=== PATIENT | female | born 1940 | race Caucasian/White ===

== ENCOUNTER 2016-08-19 15:47 | Inpatient (IN) | payer MEDICARE ==
[~2016-08-19] VITALS: Ht 149.9 cm; Wt 33.9 kg
[2016-08-19] MEDS ORDERED: ALBU0.63 (16:18)
[2016-08-19] MEDS ORDERED: PRED5TA (16:18)
[2016-08-19] MEDS ORDERED: IPRATROPIUM/ (16:18)
[2016-08-19] MEDS ORDERED: PARO20TA2 (16:18)
[2016-08-19] MEDS ORDERED: PANT40TA2 (16:18)
[2016-08-19] MEDS ORDERED: OXYCODONE-ACETAMINOPHEN (16:27)
[2016-08-19] MEDS ORDERED: IBUP80TA (16:27)
[2016-08-19] MEDS ORDERED: methylPREDNISolone INJ 125 MG/2 ML VIAL (J2930) IV ONE (16:30)
[2016-08-19] MEDS: IPRATROPIUM 0.5MG/ALBUTEROL 2.5MG INH SOL UD 3ML (DUONEB)(J7620) NEB SCH ×3 (16:43→17:10)
[2016-08-19 16:58] LABS: BASO % 0.3 % (0.0-1.0); EOS # 0.1 K/mm3 (0.0-0.50); EOS % 0.4 % (0.0-3.0); LARGE UNSTAINED CELL # 0.1 K/mm3 (0.0-0.4); LARGE UNSTAINED CELL % 0.7 % (0.0-4.0); LYMPH # 0.9 K/mm3 (1.5-4.5); LYMPH % 5.1 % (24.0-44.0); MEAN CORPUSCULAR HEMOGLOBIN 30.5 pg (27.0-33.0); MEAN CORPUSCULAR VOLUME 89.7 fl (80.0-96.0); MONO # 0.8 K/mm3 (0.0-0.8); MONO % 5.3 % (0.0-5.0); NEUTROPHILS # 13.3 K/mm3 (1.8-7.7); NEUTROPHILS % 88.1 % (36.0-66.0); PLATELET COUNT, AUTOMATED 377 k/mm3 (150-450); RED CELL DISTRIBUTION WIDTH 13.5 % (11.5-14.5); WHITE BLOOD COUNT 15.1 K/mm3 (4.0-10.0)
[2016-08-19 17:25] LABS: ANION GAP 9 MEQ/L (8-16); BLOOD UREA NITROGEN 30 MG/DL (7-18); CARBON DIOXIDE LEVEL 30 MEQ/L (21-32); CHLORIDE LEVEL 97 MEQ/L (98-107); CREATININE FOR GFR 0.53 MG/DL (0.55-1.02); GLOMERULAR FILTRATION RATE > 60.0 (>39); GLUCOSE, FASTING 100 MG/DL (83-110); POTASSIUM SERUM 3.7 MEQ/L (3.5-5.1); SODIUM LEVEL 136 MEQ/L (136-145)
[2016-08-19] MEDS ORDERED: AZITHROMYCIN INJ 500 MG, VIAL MATE ADAPTER 1 EACH in D5W 250 ML IV ONE (20:15)
[2016-08-19] MEDS ORDERED: cefTRIAXone SOD 1 GM in D5W MINI-BAG PLUS 50 ML IV ONE (20:15)
--- NOTE | 2016-08-19 20:22 | ECGEPIP ---
Stationary ECG Study [facility] - ED Test Date: 2016-08-19 Pat Name: JESSICA LONG Department: Room: - Gender: F [employer] Ext[employer]: abraham : 1940 Requested By: BYRON West Order Number: [id number] Reading MD: Marsha Leary Measurements Intervals [place] Rate: 107 P: 71 SD: 117 QRS: 60 QRSD: 70 T: 58 QT: 305 QTc: 408 Interpretive Statements SINUS TACHYCARDIA WITH SHORT SD INTERVAL ABNORMAL RHYTHM ECG BASELINE ARTIFACT LIMITS INTERPRETATION NO PRIOR FOR COMPARISON Electronically Signed On 08-19-2016 20:22:27 EST by Marsha Leary
[2016-08-19] MEDS ORDERED: PRED10TA PO (20:48)
[2016-08-19] MEDS ORDERED: PARO-39 PO (20:48)
[2016-08-19] MEDS ORDERED: TYLE325T5 PO (20:48)
[2016-08-19] MEDS ORDERED: IPRASOL4 INH (20:48)
[2016-08-19] MEDS ORDERED: SYMB16INH INH (20:48)
[2016-08-19] MEDS ORDERED: PANT40TA2 PO (20:48)
[2016-08-19] MEDS ORDERED: IPRATROPIUM 0.5MG/ALBUTEROL 2.5MG INH SOL UD 3ML (DUONEB)(J7620) NEB ONE (21:00)
[2016-08-19] MEDS: SYMBICORT 160/4.5MCG INHALER 6GM INH SCH (21:00)
[2016-08-19] MEDS ORDERED: AZITHROMYCIN INJ 500MG VIAL (J0456) As Ordered ONE (21:33)
[2016-08-19] MEDS ORDERED: SLOW142T PO (21:40)
[2016-08-19] MEDS ORDERED: IPRATROPIUM 0.5MG/ALBUTEROL 2.5MG INH SOL UD 3ML (DUONEB)(J7620) NEB PRN (23:30)
[2016-08-19 23:40] VITALS: BP 104/75
[2016-08-19] MEDS: methylPREDNISolone INJ 125 MG/2 ML VIAL (J2930) IV SCH (23:49)
[2016-08-20] MEDS: IPRATROPIUM 0.5MG/ALBUTEROL 2.5MG INH SOL UD 3ML (DUONEB)(J7620) NEB SCH ×4 (00:25→22:21)
[2016-08-20 04:00] VITALS: BP 123/70
[2016-08-20 06:00] VITALS: BP 121/71
--- NOTE | 2016-08-20 06:03 | HPE ---
DATE OF ADMISSION: 08/19/2016 PRIMARY CARE PROVIDER: Dr. Dimas REASON FOR ADMISSION: Chronic obstructive pulmonary disease (COPD) exacerbation, shortness of breath. HISTORY OF PRESENT ILLNESS: Patient is a 76-year-old female with a history of COPD, depression, history of compression fractures in the back, history of gastroesophageal reflux disease (GERD), presented to the emergency room with her daughter stating she has been feeling short of breath for the past few days. She denies any cough or fevers. No sick contacts. Patient was admitted in [facility] for shortness of breath, was discharged 07/18/2016 after she was in the hospital for 2 weeks. She was feeling okay for a few days and then started to get short of breath again. Patient is normally oxygen dependent on 2 liters. Her daughter who she normally lives with increased her oxygen to 3 liters and brought her to the emergency room. In the emergency room, patient had a chest x-ray, which showed fibrosis but cannot exclude basilar infiltrate. Patient had a white count of 15.1, brain natriuretic peptide (BNP) 116. She was started on azithromycin and ceftriaxone. In the emergency room, she was given a one-time dose of Solu-Medrol 125 mg. The hospitalist was called for the admission. REVIEW OF SYSTEMS: 12-point review of system was obtained. All of which was negative except for those mentioned above. PAST MEDICAL HISTORY: Significant for COPD on 2 liters of oxygen, history of depression, history of compression fractures in the back, history of GERD. PAST SURGICAL HISTORY: None. SOCIAL HISTORY: Patient quit 3 weeks ago; smoked a pack a day for the past 60 years. Denies alcohol use. Lives at home with her daughter. Walks with a walker. ALLERGIES TO MEDICATIONS: None. FAMILY HISTORY: Noncontributory. HOME MEDICATIONS: Include: - acetaminophen 225 mg by mouth every 4 hours as needed for pain - albuterol as needed, shortness of breath - Symbicort two puffs inhaled twice a day - pantoprazole 40 mg by mouth daily - paroxetine 20 mg by mouth daily - prednisone 10 mg by mouth daily - slow iron 142 mg by mouth daily PHYSICAL EXAMINATION: Vital signs on admission: Temperature 97.4, pulse 102, respiratory rate 20, blood pressure 119/71, pulse oximetry 95% on 3 liters nasal cannula. HEENT: Pupils equal and round, reactive to light accommodation. Neck: Supple. No Jugular venous distention (JVD). Lungs: Diminished breath sounds in all lung kahn. Cardiac: Regular rate and rhythm. Abdomen: Soft, nontender, nondistended. Extremities: No clubbing, cyanosis or edema. Neurologic: Cranial nerves II-XII grossly intact. No focal deficits. LABORATORY FINDINGS: WBCs 15.1, hemoglobin 12.7, hematocrit 37.5, platelet count 377. Sodium 136, potassium 3.7, chloride 97, BUN 30, creatinine 0.53, fasting glucose 100, troponin less than 0.02, BNP 116. Chest x-ray as above. ASSESSMENT AND PLAN: 1. Shortness of breath likely secondary to chronic obstructive pulmonary disease exacerbation. We will resume patient's Symbicort. We will put patient on DuoNebs as needed and scheduled. We will continue steroids, Solu-Medrol 60 mg IV every 8 hours. We will continue antibiotics, azithromycin and ceftriaxone, for possible pneumonia. We will try to obtain sputum culture. Titrate the oxygen to 2 liters, which is patient's baseline. Patient normally follows up with Dr. Chance. Next appointment is in September. Family is requesting to have the appointment pushed up further since she continues to have shortness of breath and required a second hospitalization after discharge from [place]. We will call the office in the morning. 2. Leukocytosis. May be secondary to chronic steroid versus infection. We will continue to monitor. 3. History of depression. Continue patient's Paxil 20 mg by mouth daily. 4. History of compression fractures. Patient only uses Tylenol home. We will resume. 5. History of gastroesophageal reflux disease. Continue Protonix 40 mg by mouth daily. 6. Deep venous thrombosis (DVT) prophylaxis. Sequential compressive devices (SCDs) while in bed. Patient will be seen by Dr. Henrietta Abebe in the morning.
[2016-08-20 06:53] LABS: BASO % 0.2 % (0.0-1.0); EOS % 0.2 % (0.0-3.0); LARGE UNSTAINED CELL # 0.1 K/mm3 (0.0-0.4); LARGE UNSTAINED CELL % 0.9 % (0.0-4.0); LYMPH # 0.4 K/mm3 (1.5-4.5); LYMPH % 4.5 % (24.0-44.0); MEAN CORPUSCULAR HGB CONC 32.6 g/dl (32.0-36.5); MEAN CORPUSCULAR VOLUME 88.9 fl (80.0-96.0); MONO # 0.2 K/mm3 (0.0-0.8); MONO % 1.8 % (0.0-5.0); NEUTROPHILS # 8.1 K/mm3 (1.8-7.7); NEUTROPHILS % 92.4 % (36.0-66.0); PLATELET COUNT, AUTOMATED 376 k/mm3 (150-450); RED CELL DISTRIBUTION WIDTH 13.5 % (11.5-14.5); WHITE BLOOD COUNT 8.7 K/mm3 (4.0-10.0)
[2016-08-20 07:12] LABS: ALBUMIN 2.7 GM/DL (3.2-5.2); ALBUMIN/GLOBULIN RATIO 0.64 (1.00-1.93); ALKALINE PHOSPHATASE 82 U/L (45-117); ALT/SGPT 13 U/L (12-78); ANION GAP 9 MEQ/L (8-16); AST/SGOT 10 U/L (15-37); BILIRUBIN,TOTAL 0.3 MG/DL (0.2-1.0); BLOOD UREA NITROGEN 32 MG/DL (7-18); CALCIUM LEVEL 9.3 MG/DL (8.8-10.2); CARBON DIOXIDE LEVEL 31 MEQ/L (21-32); CHLORIDE LEVEL 97 MEQ/L (98-107); CREATININE FOR GFR 0.58 MG/DL (0.55-1.02); GLOMERULAR FILTRATION RATE > 60.0 (>39); GLUCOSE, FASTING 130 MG/DL (83-110); POTASSIUM SERUM 3.7 MEQ/L (3.5-5.1); SODIUM LEVEL 137 MEQ/L (136-145); TOTAL PROTEIN 6.9 GM/DL (6.4-8.2)
--- NOTE | 2016-08-20 08:13 | REP ---
CHEST, TWO VIEWS: No comparison. Two views of the chest are performed. There is mild biapical pleural thickening with diffuse interstitial fibrosis. Confluent opacities in the lung bases may represent a greater degree of fibrosis in this region, but superimposed acute infiltrate cannot be excluded to prior chest radiographs. The heart is normal in size. There is some calcification of the thoracic aorta. The mediastinal silhouette is otherwise unremarkable. There is osteopenia. There are compression deformities of T7 and T8 vertebral bodies of indeterminate age. IMPRESSION: Diffuse interstitial fibrosis with somewhat confluent opacities in the lung bases, may represent fibrosis, but superimposed acute infiltrate cannot be excluded. Compression deformities of T7 and T8 are of indeterminate age. Signed by Slim Ruano MD 08/20/2016 04:11 P
[2016-08-20] MEDS: PANTOPRAZOLE 40MG TAB (PROTONIX) PO SCH (08:37)
[2016-08-20] MEDS: PARoxetine 20 MG TAB PO SCH (08:37)
[2016-08-20] MEDS: methylPREDNISolone INJ 125 MG/2 ML VIAL (J2930) IV SCH ×3 (08:37→23:56)
[2016-08-20] MEDS: SYMBICORT 160/4.5MCG INHALER 6GM INH SCH ×2 (09:00→20:35)
[2016-08-20 14:00] VITALS: BP 131/75
[2016-08-20] MEDS: cefTRIAXone SOD 1 GM in D5W MINI-BAG PLUS 50 ML IV SCH (20:18)
[2016-08-20] MEDS: AZITHROMYCIN INJ 500 MG, VIAL MATE ADAPTER 1 EACH in D5W 250 ML IV SCH (20:18)
[2016-08-20 22:00] VITALS: BP 118/66
--- NOTE | 2016-08-20 23:12 | IPNPDOC ---
Text Note Date of Service The patient was seen on 08/20/16. NOTE Subjective: 76 yo F was seen and examined at bedside. She denied headache, dizziness, blurred vision, fevers, chills, chest pain, increasing SOB, nausea, vomiting, diarrhea, constipation, abdominal pain, weakness, fatigue, rashes/ lesions, urinary incontinence, dysuria, hematuria, hematochezia. She reports she is doing well today. Nursing reports no acute events overnight. Objective: Vitals: T 98.4 , P 101 , RR 18, BP 121/71 (88), Pulse Ox: 88% on 2L NC. General: Patient awake, alert and oriented, verbal and able to answer questions appropriately. She does not appear to be in any acute distress HEENT: Normocephalic Atraumtic. EOMI intact bilaterally. Grossly normal hearing bilaterally. Sclera Nonicteric. No external nasal lesions. Endocrinology: No thyromegaly. Neck: Supple. No cervical LAD bilaterally. Heart: Regular rate and rhythm, normal S1-S2. No murmurs, rubs, clicks or gallops Lungs: Clear to auscultation bilaterally with decreased breath sounds in all lung kahn. No wheezes, rales or rhonchi Abdomen: Active bowel sounds, soft, nontender, no masses to palpation. Extremities: No clubbing, cyanosis, edema. Without amputations/deformities. MSK: Can sit up without dizziness. Vascular: +2 radial pulses bilaterally. Psychiatric: No signs of depression or anxiety Laboratory data: Please see below. Microbiology: Please see below. Imaging: CXR 08/19/16 showed: Diffuse interstitial fibrosis with somewhat confluent opacities in the lung bases, may represent fibrosis, but superimposed acute infiltrate cannot be excluded. Compression deformities of T7 and T8 are of indeterminate age. Assessment/Plan: 76 yo F with PMH significant for COPD is presenting for acute COPD exacerbation and possibly superimposed Healthcare Acquired Pneumonia. 1) SOB secondary to COPD Exacerbation: Continue breathing treatments with duonebs scheduled q6 hours and q2 hours PRN SOB/wheezing. Aim for O2 saturation of 90-92%. Continue to keep at 2 L O2 via nasal cannula. Continue solumedrol, but taper dose from 60 mg q8 hours to 40 mg q8 hours IV. 2) Possible Healthcare Acquired Pneumonia: Continue ceftriaxone and azithromycin for now. Have noted improvement in WBC from 15.1 to 8.7 today. Continue to monitor for cough, fevers, chills, blood-tinged sputum. 3) Leukocytosis: likely secondary to steroid use. May be a result of pneumonia/ infection. Continue to monitor CBC WBC counts. 4) Depression: Continue paxil. 5) Compression Fractures of the Back: Continue tylenol PRN pain. 6) GERD/GI ppx: Continue protonix. 7) DVT ppx: continue SCDs. Immunizations as per protocol. VS,Fishbone, I+O VS, Fishbone, I+O Laboratory Tests 08/20/16 06:33 Calcium Level 9.3, Aspartate Amino Transf (AST/SGOT) 10 L, Alanine Aminotransferase (ALT/SGPT) 13, Alkaline Phosphatase 82, Total Bilirubin 0.3, Total Protein 6.9, Albumin 2.7 L, Red Blood Count 4.15, Mean Corpuscular Volume 88.9, Mean Corpuscular Hemoglobin 29.0, Mean Corpuscular Hemoglobin Concent 32.6 , Red Cell Distribution Width 13.5, Neutrophils (%) (Auto) 92.4 H, Lymphocytes ( %) (Auto) 4.5 L, Monocytes (%) (Auto) 1.8, Eosinophils (%) (Auto) 0.2, Basophils (%) (Auto) 0.2, Neutrophils # (Auto) 8.1 H, Lymphocytes # (Auto) 0.4 L , Monocytes # (Auto) 0.2, Eosinophils # (Auto) 0.0, Basophils # (Auto) 0.0 Vital Signs Date Time Temp Pulse Resp B/P Pulse Ox O2 Delivery O2 Flow Rate FiO2 08/20/16 20:15 Nasal Cannula 2.0 08/20/16 14:00 97.8 82 30 131/75 91 I&O- Last 24 Hours up to 6 AM 08/20/16 06:00 Intake Total 160 ml Output Total 150 ml Balance 10 ml GME ATTESTATION GME ATTESTATION My preceptor for this patient encounter was Dr. Henrietta Abebe, and was physically present in the building during the encounter and was fully available. As needed, all aspects of the patient interview, examination, medical decision making process, and medical care plan development were reviewed and approved by the preceptor. Preceptor is aware and concurs with the plan as stated in the body of this note and will attest to such by his/her cosignature. [facility] Aug 20, 2016 23:12 available. As needed, all aspects of the patient interview, examination, medical decision making process, and medical care plan development were reviewed and approved by the preceptor. Preceptor is aware and concurs with the plan as stated in the body of this note and will attest to such by his/her cosignature. [facility] Aug 20, 2016 23:12 Output Total 150 ml Balance 10 ml [facility] Aug 20, 2016 23:12
[2016-08-21] MEDS: IPRATROPIUM 0.5MG/ALBUTEROL 2.5MG INH SOL UD 3ML (DUONEB)(J7620) NEB SCH ×4 (01:45→20:00)
[2016-08-21 06:00] VITALS: BP 110/63
[2016-08-21 06:42] LABS: BASO % 0.1 % (0.0-1.0); EOS # 0.1 K/mm3 (0.0-0.50); EOS % 0.3 % (0.0-3.0); LARGE UNSTAINED CELL # 0.1 K/mm3 (0.0-0.4); LARGE UNSTAINED CELL % 0.3 % (0.0-4.0); LYMPH # 0.5 K/mm3 (1.5-4.5); LYMPH % 2.1 % (24.0-44.0); MEAN CORPUSCULAR HEMOGLOBIN 29.7 pg (27.0-33.0); MEAN CORPUSCULAR HGB CONC 32.8 g/dl (32.0-36.5); MEAN CORPUSCULAR VOLUME 90.5 fl (80.0-96.0); MONO # 0.5 K/mm3 (0.0-0.8); MONO % 2.1 % (0.0-5.0); NEUTROPHILS % 95.2 % (36.0-66.0); PLATELET COUNT, AUTOMATED 392 k/mm3 (150-450); RED CELL DISTRIBUTION WIDTH 13.6 % (11.5-14.5); WHITE BLOOD COUNT 23.1 K/mm3 (4.0-10.0)
[2016-08-21 06:59] LABS: ALBUMIN 2.8 GM/DL (3.2-5.2); ALBUMIN/GLOBULIN RATIO 0.76 (1.00-1.93); ALKALINE PHOSPHATASE 80 U/L (45-117); ALT/SGPT 14 U/L (12-78); ANION GAP 8 MEQ/L (8-16); AST/SGOT 9 U/L (15-37); BILIRUBIN,TOTAL 0.1 MG/DL (0.2-1.0); BLOOD UREA NITROGEN 39 MG/DL (7-18); CALCIUM LEVEL 8.8 MG/DL (8.8-10.2); CARBON DIOXIDE LEVEL 31 MEQ/L (21-32); CHLORIDE LEVEL 100 MEQ/L (98-107); CREATININE FOR GFR 0.65 MG/DL (0.55-1.02); GLOMERULAR FILTRATION RATE > 60.0 (>39); GLUCOSE, FASTING 147 MG/DL (83-110); POTASSIUM SERUM 3.6 MEQ/L (3.5-5.1); SODIUM LEVEL 139 MEQ/L (136-145); TOTAL PROTEIN 6.5 GM/DL (6.4-8.2)
[2016-08-21] MEDS: SYMBICORT 160/4.5MCG INHALER 6GM INH SCH ×2 (08:19→21:44)
[2016-08-21] MEDS: PANTOPRAZOLE 40MG TAB (PROTONIX) PO SCH (09:02)
[2016-08-21] MEDS: methylPREDNISolone INJ 125 MG/2 ML VIAL (J2930) IV SCH (09:02)
[2016-08-21] MEDS: PARoxetine 20 MG TAB PO SCH (09:04)
--- NOTE | 2016-08-21 11:47 | IPNPDOC ---
Text Note Date of Service The patient was seen on 08/21/16. NOTE Subjective: 76 yo F was seen and examined at bedside. She denied dizziness, blurred vision, fevers, chills, chest pain, SOB, nausea, vomiting, diarrhea, constipation, abdominal pain, weakness, fatigue, rashes/lesions, urinary incontinence, dysuria, hematuria, hematochezia. Admits to a slight frontal headache, which has improved from yesterday. She reports she is doing well today. Nursing reports no acute events overnight. Objective: Vitals: T 98.5 , P 63 at 6 AM and 112 at around 10 AM, RR 18 at 6 AM and 30 at ~ 2 PM yesterday, BP 110/63 (79), Pulse Ox: 94% on 2L NC. General: Pleasant thin cachectic elderly female resting comfortably in bed, sitting up. Patient awake, alert and oriented, verbal and able to answer questions appropriately. She does not appear to be in any acute distress. HEENT: Normocephalic Atraumatic. Grossly normal hearing bilaterally. Sclera Nonicteric. No external nasal lesions. Endocrinology: No thyromegaly. Neck: Supple. No cervical LAD bilaterally. Heart: Regular rate and rhythm, normal S1-S2. No murmurs, rubs, clicks or gallops Lungs: Clear to auscultation bilaterally with diminished breath sounds in all lung kahn. No wheezes, rales or rhonchi. Abdomen: Active bowel sounds, soft, nontender, no masses to palpation. Extremities: No clubbing, cyanosis, edema. Without amputations/deformities. No pedal edema. MSK: Can sit up without dizziness. Vascular: +2 radial pulses bilaterally. Psychiatric: No signs of depression or anxiety Laboratory data: Please see below. Blood Cx show NGTD x 24 hours. Microbiology: Please see below. Imaging: No new imaging today. Assessment/Plan: 76 yo F with PMH significant for COPD is presenting for acute COPD exacerbation and possibly superimposed Healthcare Acquired Pneumonia. 1) SOB secondary to COPD Exacerbation: Satting today at 94% on 2 L nasal cannula. Continue breathing treatments with duonebs scheduled q6 hours and q2 hours PRN SOB/wheezing. Aim for O2 saturation of 90-92%. Continue to keep at 2 L O2 via nasal cannula. Continue solumedrol. Switch from 40 mg q8 hours to 40 mg PO prednisone daily tomorrow. 2) Possible Healthcare Acquired Pneumonia: Continue ceftriaxone and azithromycin for now. Have noted improvement in WBC from 15.1 to 8.7 today. Continue to monitor for cough, fevers, chills, blood-tinged sputum. 3) Leukocytosis: WBC elevated today to 23.1 from 8.7 yesterday. Will continue to monitor. May be secondary to steroid use. May be a result of pneumonia/ infection or a new etiology/infection. Continue to monitor CBC. Follow up on blood cx when available. Monitor for any spikes in temperature. 4) Depression: Continue paxil. 5) Compression Fractures of the Back: Continue tylenol PRN pain. 6) GERD/GI ppx: Continue protonix. 7) DVT ppx: continue SCDs. Immunizations as per protocol. VS,Fishbone, I+O VS, Fishbone, I+O Laboratory Tests 08/21/16 06:29 Calcium Level 8.8, Aspartate Amino Transf (AST/SGOT) 9 L, Alanine Aminotransferase (ALT/SGPT) 14, Alkaline Phosphatase 80, Total Bilirubin 0.1 #L , Total Protein 6.5, Albumin 2.8 L 08/21/16 06:30 Red Blood Count 3.93 L, Mean Corpuscular Volume 90.5, Mean Corpuscular Hemoglobin 29.7, Mean Corpuscular Hemoglobin Concent 32.8, Red Cell Distribution Width 13.6, Neutrophils (%) (Auto) 95.2 H, Lymphocytes (%) (Auto) 2.1 L, Monocytes (%) (Auto) 2.1, Eosinophils (%) (Auto) 0.3, Basophils (%) (Auto ) 0.1, Neutrophils # (Auto) 22.0 H, Lymphocytes # (Auto) 0.5 L, Monocytes # ( Auto) 0.5, Eosinophils # (Auto) 0.1, Basophils # (Auto) 0.0 Vital Signs Date Time Temp Pulse Resp B/P Pulse Ox O2 Delivery O2 Flow Rate FiO2 08/21/16 06:16 Nasal Cannula 2.0 08/21/16 06:00 98.5 63 18 110/63 94 I&O- Last 24 Hours up to 6 AM 08/21/16 06:00 Intake Total 900 ml Output Total 500 ml Balance 400 ml GME ATTESTATION GME ATTESTATION My preceptor for this patient encounter was Dr. Navjot Walker, and was physically present in the building during the encounter and was fully available. As needed, all aspects of the patient interview, examination, medical decision making process, and medical care plan development were reviewed and approved by the preceptor. Preceptor is aware and concurs with the plan as stated in the body of this note and will attest to such by his/her cosignature. NAVJOT LOPEZ OGME-1 Aug 21, 2016 11:47
[2016-08-21 14:00] VITALS: BP 115/60
[2016-08-21] MEDS: ACETAMINOPHEN TAB 650MG DOSE (2X325MG) PO PRN (19:36)
[2016-08-21] MEDS: AZITHROMYCIN INJ 500 MG, VIAL MATE ADAPTER 1 EACH in D5W 250 ML IV SCH (19:36)
[2016-08-21 22:00] VITALS: BP 115/60
[2016-08-21] MEDS: cefTRIAXone SOD 1 GM in D5W MINI-BAG PLUS 50 ML IV SCH (22:13)
[2016-08-22] MEDS: IPRATROPIUM 0.5MG/ALBUTEROL 2.5MG INH SOL UD 3ML (DUONEB)(J7620) NEB SCH ×4 (01:21→20:00)
[2016-08-22 06:00] VITALS: BP 134/70
[2016-08-22 07:06] LABS: BASO % 0.1 % (0.0-1.0); EOS % 0.2 % (0.0-3.0); LARGE UNSTAINED CELL # 0.1 K/mm3 (0.0-0.4); LARGE UNSTAINED CELL % 0.5 % (0.0-4.0); LYMPH # 0.7 K/mm3 (1.5-4.5); LYMPH % 4.2 % (24.0-44.0); MEAN CORPUSCULAR HEMOGLOBIN 29.2 pg (27.0-33.0); MEAN CORPUSCULAR HGB CONC 32.6 g/dl (32.0-36.5); MEAN CORPUSCULAR VOLUME 89.5 fl (80.0-96.0); MONO # 0.5 K/mm3 (0.0-0.8); MONO % 3.1 % (0.0-5.0); NEUTROPHILS # 16.1 K/mm3 (1.8-7.7); NEUTROPHILS % 91.9 % (36.0-66.0); PLATELET COUNT, AUTOMATED 352 k/mm3 (150-450); RED CELL DISTRIBUTION WIDTH 13.4 % (11.5-14.5); WHITE BLOOD COUNT 17.5 K/mm3 (4.0-10.0)
[2016-08-22 07:22] LABS: ALBUMIN 2.6 GM/DL (3.2-5.2); ALBUMIN/GLOBULIN RATIO 0.74 (1.00-1.93); ALKALINE PHOSPHATASE 68 U/L (45-117); ALT/SGPT 15 U/L (12-78); ANION GAP 7 MEQ/L (8-16); AST/SGOT 10 U/L (15-37); BILIRUBIN,TOTAL 0.3 MG/DL (0.2-1.0); BLOOD UREA NITROGEN 30 MG/DL (7-18); CALCIUM LEVEL 9.1 MG/DL (8.8-10.2); CARBON DIOXIDE LEVEL 30 MEQ/L (21-32); CHLORIDE LEVEL 101 MEQ/L (98-107); CREATININE FOR GFR 0.55 MG/DL (0.55-1.02); GLOMERULAR FILTRATION RATE > 60.0 (>39); GLUCOSE, FASTING 104 MG/DL (83-110); POTASSIUM SERUM 4.1 MEQ/L (3.5-5.1); SODIUM LEVEL 138 MEQ/L (136-145); TOTAL PROTEIN 6.1 GM/DL (6.4-8.2)
[2016-08-22] MEDS: SYMBICORT 160/4.5MCG INHALER 6GM INH SCH ×2 (07:23→21:41)
[2016-08-22] MEDS: predniSONE 20 MG TAB PO SCH (08:44)
[2016-08-22] MEDS: PANTOPRAZOLE 40MG TAB (PROTONIX) PO SCH (08:44)
[2016-08-22] MEDS: PARoxetine 20 MG TAB PO SCH (08:44)
[2016-08-22 10:00] VITALS: BP 119/57
[2016-08-22] MEDS: ACETAMINOPHEN TAB 650MG DOSE (2X325MG) PO PRN (13:13)
[2016-08-22 14:00] VITALS: BP 122/70
[2016-08-22] MEDS: AUGMENTIN 875 MG TAB PO SCH ×2 (17:33→20:12)
--- NOTE | 2016-08-22 18:55 | IPNPDOC ---
Text Note Date of Service The patient was seen on 08/22/16. NOTE Subjective: 76 yo F was seen and examined at bedside. She denied dizziness, blurred vision, fevers, chills, chest pain, SOB, nausea, vomiting, diarrhea, constipation, abdominal pain, weakness, fatigue, rashes/lesions, urinary incontinence, dysuria, hematuria, hematochezia. She reports she is doing well today. Nursing reports no acute events overnight. Objective: Vitals: T 97 , P 91 (103 at 22:00), RR 18 (24 at 2 PM), BP 134/70 (91), Pulse Ox : 93% on 2L NC. General: Pleasant thin cachectic elderly female resting comfortably in bed, sitting up. Patient awake, alert and oriented, verbal and able to answer questions appropriately. She does not appear to be in any acute distress. HEENT: Normocephalic Atraumatic. Grossly normal hearing bilaterally. Sclera Nonicteric. No external nasal lesions. Endocrinology: No thyromegaly. Neck: Supple. No cervical LAD bilaterally. Heart: Regular rate and rhythm, normal S1-S2. No murmurs, rubs, clicks or gallops Lungs: Clear to auscultation bilaterally with diminished breath sounds in all lung kahn. No wheezes, rales or rhonchi. Abdomen: Active bowel sounds, soft, no masses to palpation. Mild tenderness to palpation of bilateral lower abdominal quadrants without rebound or guarding. Extremities: No clubbing, cyanosis, edema. Without amputations/deformities. No pedal edema. MSK: Can sit up without dizziness. Vascular: +2 radial pulses bilaterally. Psychiatric: No signs of depression or anxiety Laboratory data: Please see below. Blood Cx show NGTD x 48 hours. Microbiology: Please see below. Imaging: No new imaging today. Assessment/Plan: 76 yo F with PMH significant for COPD is presenting for acute COPD exacerbation and possibly superimposed Healthcare Acquired Pneumonia. 1) SOB secondary to COPD Exacerbation: Satting today at 93% on 2 L nasal cannula. Continue breathing treatments with duonebs scheduled q6 hours and q2 hours PRN SOB/wheezing and symbicort. Aim for O2 saturation of 90-92%. Continue to keep at 2 L O2 via nasal cannula. Continue prednisone 40 mg daily today. Will taper tomorrow to 30 mg tomorrow for 2 days. 2) Possible Healthcare Acquired Pneumonia: Have discontinued ceftriaxone and azithromycin for now and switched to PO amoxicillin/clavulanate. Have noted improvement in WBC from 23.1 to 17.5 to today. Continue to monitor for cough, fevers, chills, blood-tinged sputum. 3) Leukocytosis: WBC went down today to 17.5 from 23.1 yesterday. Will continue to monitor. May be secondary to steroid use. May be a result of pneumonia/ infection or a new etiology/infection. Continue to monitor CBC. Blood cx show NGTD x 48 hours. Monitor for any spikes in temperature. 4) Depression: Continue paxil. 5) Compression Fractures of the Back: Continue tylenol PRN pain. 6) GERD/GI ppx: Continue protonix. 7) DVT ppx: continue SCDs. Immunizations as per protocol. VS,Fishbone, I+O VS, Fishbone, I+O Laboratory Tests 08/22/16 06:39 Calcium Level 9.1, Aspartate Amino Transf (AST/SGOT) 10 L, Alanine Aminotransferase (ALT/SGPT) 15, Alkaline Phosphatase 68, Total Bilirubin 0.3 #, Total Protein 6.1 L, Albumin 2.6 L, Red Blood Count 3.78 L, Mean Corpuscular Volume 89.5, Mean Corpuscular Hemoglobin 29.2, Mean Corpuscular Hemoglobin Concent 32.6, Red Cell Distribution Width 13.4, Neutrophils (%) (Auto) 91.9 H, Lymphocytes (%) (Auto) 4.2 L, Monocytes (%) (Auto) 3.1, Eosinophils (%) (Auto) 0.2, Basophils (%) (Auto) 0.1, Neutrophils # (Auto) 16.1 H, Lymphocytes # (Auto ) 0.7 L, Monocytes # (Auto) 0.5, Eosinophils # (Auto) 0.0, Basophils # (Auto) 0.0 Vital Signs Date Time Temp Pulse Resp B/P Pulse Ox O2 Delivery O2 Flow Rate FiO2 08/22/16 10:00 98.7 68 24 119/57 92 Nasal Cannula 1.0 I&O- Last 24 Hours up to 6 AM 08/22/16 05:59 Intake Total 1080 ml Output Total 0 ml Balance 1080 ml GME ATTESTATION GME ATTESTATION My preceptor for this patient encounter was Dr. Navjot Walker, and was physically present in the building during the encounter and was fully available. As needed, all aspects of the patient interview, examination, medical decision making process, and medical care plan development were reviewed and approved by the preceptor. Preceptor is aware and concurs with the plan as stated in the body of this note and will attest to such by his/her cosignature. NAVJOT LOPEZ OGME-1 Aug 22, 2016 18:55
[2016-08-22 22:00] VITALS: BP 138/80
[2016-08-23] MEDS: IPRATROPIUM 0.5MG/ALBUTEROL 2.5MG INH SOL UD 3ML (DUONEB)(J7620) NEB SCH ×3 (01:38→10:39)
[2016-08-23 04:00] VITALS: BP 148/76
[2016-08-23 06:00] VITALS: BP 148/76
[2016-08-23] MEDS: SYMBICORT 160/4.5MCG INHALER 6GM INH SCH (07:01)
[2016-08-23 07:20] LABS: BASO % 0.2 % (0.0-1.0); EOS % 0.4 % (0.0-3.0); LARGE UNSTAINED CELL # 0.1 K/mm3 (0.0-0.4); LYMPH # 1.4 K/mm3 (1.5-4.5); MEAN CORPUSCULAR HEMOGLOBIN 30.2 pg (27.0-33.0); MEAN CORPUSCULAR HGB CONC 33.4 g/dl (32.0-36.5); MEAN CORPUSCULAR VOLUME 90.4 fl (80.0-96.0); MONO # 0.7 K/mm3 (0.0-0.8); MONO % 5.8 % (0.0-5.0); NEUTROPHILS # 10.5 K/mm3 (1.8-7.7); NEUTROPHILS % 82.7 % (36.0-66.0); PLATELET COUNT, AUTOMATED 342 k/mm3 (150-450); RED CELL DISTRIBUTION WIDTH 13.7 % (11.5-14.5); WHITE BLOOD COUNT 12.7 K/mm3 (4.0-10.0)
[2016-08-23 07:30] LABS: ALBUMIN 2.5 GM/DL (3.2-5.2); ALBUMIN/GLOBULIN RATIO 0.76 (1.00-1.93); ALKALINE PHOSPHATASE 70 U/L (45-117); ALT/SGPT 16 U/L (12-78); ANION GAP 7 MEQ/L (8-16); AST/SGOT 13 U/L (15-37); BILIRUBIN,TOTAL 0.3 MG/DL (0.2-1.0); BLOOD UREA NITROGEN 24 MG/DL (7-18); CALCIUM LEVEL 8.6 MG/DL (8.8-10.2); CARBON DIOXIDE LEVEL 32 MEQ/L (21-32); CHLORIDE LEVEL 101 MEQ/L (98-107); CREATININE FOR GFR 0.55 MG/DL (0.55-1.02); GLOMERULAR FILTRATION RATE > 60.0 (>39); GLUCOSE, FASTING 86 MG/DL (83-110); MAGNESIUM LEVEL 2.1 MG/DL (1.8-2.4); POTASSIUM SERUM 3.8 MEQ/L (3.5-5.1); SODIUM LEVEL 140 MEQ/L (136-145); TOTAL PROTEIN 5.8 GM/DL (6.4-8.2)
[2016-08-23] MEDS ORDERED: MOM 30ML SUSPENSION UDC PO ONE (08:15)
[2016-08-23] MEDS: PARoxetine 20 MG TAB PO SCH (08:27)
[2016-08-23] MEDS: PANTOPRAZOLE 40MG TAB (PROTONIX) PO SCH (08:27)
[2016-08-23] MEDS: predniSONE 20 MG TAB PO SCH (08:27)
[2016-08-23] MEDS: AUGMENTIN 875 MG TAB PO SCH (08:28)
[2016-08-23] MEDS ORDERED: AMOX875T2 PO (10:21)
[2016-08-23] MEDS ORDERED: PRED10TA PO (10:21)
--- NOTE | 2016-08-23 11:26 | DS.PDOC ---
[facility] Discharge [place] [facility] Discharge Summary DATE OF ADMISSION: Aug 19, 2016 at 21:00 DATE OF DISCHARGE: DISCHARGE DIAGNOSIS: Appropriate for gestational age term born via . PROCEDURES: 1. Circumcision was completed by using a Pipeliner CRM Laureano clamp 1.45 without complication. 1% Xylocaine was used for a dorsal penile block. 2. Hearing screen was passed bilaterally. 3. Hepatitis B vaccine given at . HOSPITAL COURSE: born to a -year-old, G, P---, mother with maternal blood type . Antibody screen [negative]. Rubella [immune]. Rapid plasma reagin (RPR) [nonreactive]. Hepatitis B surface antigen, HIV, GC and Chlamydia [ negative]. Group B Strep [negative]. No history of herpes. The was born via [spontaneous vaginal] delivery hours and minutes after spontaneous rupture of membranes with clear fluid at and /7 estimated weeks' gestation. scores were at one minute and at five minutes. There was a three-vessel cord. Vitamin K and erythromycin ophthalmic ointment were given at . The infant has had good urine and stool output throughout hospital stay. was -feeding without problems with minimal spitting. PHYSICAL EXAMINATION: weight grams, pounds ounces. Length inches. Head circumference inches. Weight at the time of discharge grams, pounds ounces, down % from weight. VITAL SIGNS: Temperature . Heart rate . Respiratory rate . Oxygen saturation % right hand and % right foot. Initial blood pressure was . GENERAL APPEARANCE: [Alert, no acute distress]. SKIN: [Warm, well perfused]. HEAD/NECK: [Anterior fontanelle open, soft and flat. Eyes open spontaneously. Fundi with red reflex symmetric bilaterally. ENT: Palate intact.] THORAX: [Symmetrical]. LUNGS: [Clear to auscultation bilaterally.] HEART: [Normal S1, S2.] ABDOMEN: [Soft. No masses. Bowel sounds are present.] GENITALIA: [Normal male. Testes descended bilaterally. Circumcision healing well.] TRUNK/SPINE: [Straight.] HIPS: [Stable bilaterally. Negative Zazueta. Negative Ortolani.] EXTREMITIES: [Moves all extremities equally. No gross deformities.] PULSES: [2+ femoral bilaterally.] REFLEXES: [Marion symmetric.] ANUS: Patent. LABORATORY STUDIES: blood type . Transcutaneous bilirubin check was at hours of life, which is risk. DISCHARGE PLAN: The patient to followup with on [DATE] after discharge. Mom to call with any questions or concerns. More than minutes was spent discharging this patient. Vital Signs/I&O Vital Signs Date Time Temp Pulse Resp B/P Pulse Ox O2 Delivery O2 Flow Rate FiO2 08/23/16 08:00 Nasal Cannula 1.0 08/23/16 06:00 97.0 95 18 148/76 97 I&O- Last 24 Hours up to 6 AM 08/23/16 06:00 Intake Total 740 ml Output Total 850 ml Balance -110 ml Laboratory Data Labs 24 H Laboratory Tests 2 08/23/16 06:54: Blood Urea Nitrogen 24H, Creatinine 0.55, Sodium Level 140, Potassium Level 3.8 , Chloride Level 101, Carbon Dioxide Level 32, Calcium Level 8.6L, Aspartate Amino Transf (AST/SGOT) 13L, Alanine Aminotransferase (ALT/SGPT) 16, Alkaline Phosphatase 70, Total Bilirubin 0.3, Total Protein 5.8L, Albumin 2.5L, Albumin/ Globulin Ratio 0.76L, Anion Gap 7L, White Blood Count 12.7H, Red Blood Count 4.00, Hemoglobin 12.1, Hematocrit 36.2, Mean Corpuscular Volume 90.4, Mean Corpuscular Hemoglobin 30.2, Mean Corpuscular Hemoglobin Concent 33.4, Red Cell Distribution Width 13.7, Platelet Count 342, Neutrophils (%) (Auto) 82.7H, Lymphocytes (%) (Auto) 10.0L, Monocytes (%) (Auto) 5.8H, Eosinophils (%) (Auto) 0.4, Basophils (%) (Auto) 0.2, Neutrophils # (Auto) 10.5H, Lymphocytes # (Auto) 1.4L, Monocytes # (Auto) 0.7, Eosinophils # (Auto) 0.0, Basophils # (Auto) 0.0, Glomerular Filtration Rate > 60.0, Large Unclassified Cells # 0.1, Large Unclassified Cells % 1.0, Magnesium Level 2.1 Microbiology Microbiology 08/19/16 Blood Culture - Preliminary, Resulted No Growth after 72 hours. All specime... 08/19/16 Blood Culture - Preliminary, Resulted No Growth after 72 hours. All specime... 08/19/16 Influenza Virus Type A Antigen - Final, Complete 08/19/16 Influenza Virus Type B Antigen - Final, Complete Allergies Coded Allergies: No Known Allergies (Unverified , 08/19/16) Medications Scheduled (Slow Fe) 142 Mg Tab 142 MG PO DAILY (Reported) Amoxicillin/Clavulanate Potas (Amoxicillin/Clavulanate P 875-125 mg) 1 Tab Tab # 8 875 MG PO BID Budesonide/Formoterol (Symbicort 160-4.5 Mcg/Act) 60 Puff/Inhaler Aers 2 PUFF INH BID (Reported) Pantoprazole Sodium (Pantoprazole Sodium) 40 Mg Tab 40 MG PO DAILY (Reported) Paroxetine Hydrochloride (Paroxetine) 20 Mg Tab 20 MG PO DAILY (Reported) Prednisone (Prednisone) 10 Mg Tab 10 MG PO DAILY (Reported) Prednisone (Prednisone) 10 Mg Tab #18 10 MG PO ASDIRECTED Scheduled PRN Acetaminophen (Tylenol) 325 Mg Tab 325 MG PO Q4H PRN PRN PAIN (Reported) Albuterol/Ipratropium (Ipratropium [place]/Albut 0.5-2.5 (3) mg/3Ml) 1 Dacia Dacia 1 DACIA INH Q4H PRN PRN SHORTNESS OF BREATH (Reported) ALBERTINA LOPEZ OGME-1 Aug 23, 2016 11:26
--- NOTE | 2016-08-23 11:33 | DS.PDOC ---
Discharge Summary General Date of Admission Aug 19, 2016 at 21:00 Date of Discharge 08/23/16 Primary Care Physician: Chad Dimas MD Attending Physician: NAVJOT CLAROS MD Discharge Summary PCP: Dr. Dimas Attending Physician: Dr. aNvjot Claros Consults: None Discharge diagnosis: Acute COPD Exacerbation Secondary diagnosis: Superimposed Healthcare Acquired Pneumonia Leukocytosis Depression Hx of Compression Fractures of the Back GERD Protein-Calorie Malnutrition Hospital course: This is a 76 yo F who presented for a few day hx of SOB after a 2 week hospitalization at [facility] for SOB. Was discharged on 07/18/16. She initially reported feeling better after discharge, but then developed SOB again a few days later, at which time she was brought to the [facility] ER by her daughter who had increased her O2 from her normal 2 liters to 3 liters prior to arrival. In the ER, workup was significant for a WBC of 15.1, BNP of 116, and a CXR that showed fibrosis but could not exclude basilar infiltrate. The patient was treated at [facility] for acute COPD exacerbation with superimposed HCAP with breathing treatments, IV solumedrol and antibiotics. Breathing treatments included duonebs q6 hours scheduled and q2 hours PRN SOB/wheezing as well as symbicort. Antibiotics included IV azithromycin and ceftriaxone until yesterday when the antibiotics were changed to amoxicillin-clavulanate PO. The patient was also decreased from 3 liters of O2 to her home oxygen dose of 2 liters and remained stable with O2 saturation >88% throughout hospitalization without any signficant desaturation events. Patient was eventually transitioned and tapered down from IV solumedrol to PO prednisone. Was also treated with DVT prophylaxis with mechanical SCDs. Leukocytosis has improved today and is most likely due to steroid treatment. Patient has improved and is clinically and hemodynamically stable. Remained afebrile and there were no major complications during the hospital stay. Labs were unremarkable today. Please see below. Progress note on date of discharge: Subjective: Today, patient denies fevers, chills, dizziness, blurred vision, sore throat, earaches, runny nose, cough, chest pain, SOB, nausea, vomiting, diarrhea, constipation, weakness, fatigue, weight gain/loss, hematochezia, hematuria, rashes/lesions. States she is feeling better. Nursing reported that patient remained stable with no acute overnight events. (It is noted in the chart, however, that patient has not had a bowel movement in the last 3 days.) Objective: Vitals: T97 , P 95 , RR 18 BP 148/76 , Pulse Ox: 97 % on 2L nasal cannula. I's/O's: 20/200, -180 mLs balance. General: Pleasant, thin cachectic, malnourished, elderly female resting comfortably in bed, sitting up. Patient awake, alert and oriented, verbal and able to answer questions appropriately. She does not appear to be in any acute distress. HEENT: Normocephalic Atraumatic. Grossly normal hearing bilaterally. Sclera Nonicteric. No external nasal lesions. Endocrinology: No thyromegaly. Neck: Supple. No cervical LAD bilaterally. Heart: Regular rate and rhythm, normal S1-S2. No murmurs, rubs, clicks or gallops Lungs: Clear to auscultation bilaterally with diminished breath sounds in all lung kahn. No wheezes, rales or rhonchi. Abdomen: Active bowel sounds, soft, no masses to palpation. Mild tenderness to palpation of bilateral lower abdominal quadrants without rebound or guarding ( most likely due to constipation). Extremities: No clubbing, cyanosis, edema. Without amputations/deformities. No pedal edema. MSK: Can sit up without dizziness. Vascular: +2 radial pulses bilaterally. +2 dorsalis pedis pulses bilaterally. Psychiatric: No signs of depression or anxiety. Labs: Please see below. Blood cx show NGTD x 72 hours. Assessment: 76 yo F with PMH significant for COPD is presenting for acute COPD exacerbation and possibly superimposed Healthcare Acquired Pneumonia. Disposition/Plan: Discharge home today with 6 day prednisone taper and 4 days of amoxicillin/ clavulanate PO BID. Follow up with PCP Dr. Dimas within 7 days. Continue home medications. Follow-up: Recommended with PCP in 7 days. In addition, have prescribed amoxicillin/ clavulanate and prednisone taper of: 40 mg x 2 days, 30 mg x 2 days, 20 mg x 2 days, and 10 mg home dose daily thereafter. Activity: No restrictions and as tolerated. Diet: 2g low sodium. Encourage increase in oral diet and increased hydration. Recommend protein supplementation due to protein-calorie malnutrition. Medications on discharge: Acetaminophen 325 mg tab PO q4h PRN pain. Albuterol/Ipratropium 0.5-2.5 (3) mg/3Ml)1 Dacia Inh q4h PRN SOB. Amoxicillin/Clavulanate Potas 1 tab 875-125 mg PO BID 8 tablets total Budesonide/Formoterol 160-4.5 Mcg/Act 60 Puff/Inhaler Aers 2 puffs inhaled BID Pantoprazole Sodium 40 mg PO daily Paroxetine Hydrochloride 20 mg tab PO daily Prednisone 10 mg tab PO daily Slow Fe 142 mg tab PO daily Time spent on discharge: 35 minutes. Vital Signs/I&Os Vital Signs Date Time Temp Pulse Resp B/P Pulse Ox O2 Delivery O2 Flow Rate FiO2 08/23/16 08:00 Nasal Cannula 1.0 08/23/16 06:00 97.0 95 18 148/76 97 I&O- Last 24 Hours up to 6 AM 08/23/16 05:59 Intake Total 740 ml Output Total 950 ml Balance -210 ml Laboratory Data Labs 24H Laboratory Tests 2 08/23/16 06:54: Blood Urea Nitrogen 24H, Creatinine 0.55, Sodium Level 140, Potassium Level 3.8 , Chloride Level 101, Carbon Dioxide Level 32, Calcium Level 8.6L, Aspartate Amino Transf (AST/SGOT) 13L, Alanine Aminotransferase (ALT/SGPT) 16, Alkaline Phosphatase 70, Total Bilirubin 0.3, Total Protein 5.8L, Albumin 2.5L, Albumin/ Globulin Ratio 0.76L, Anion Gap 7L, White Blood Count 12.7H, Red Blood Count 4.00, Hemoglobin 12.1, Hematocrit 36.2, Mean Corpuscular Volume 90.4, Mean Corpuscular Hemoglobin 30.2, Mean Corpuscular Hemoglobin Concent 33.4, Red Cell Distribution Width 13.7, Platelet Count 342, Neutrophils (%) (Auto) 82.7H, Lymphocytes (%) (Auto) 10.0L, Monocytes (%) (Auto) 5.8H, Eosinophils (%) (Auto) 0.4, Basophils (%) (Auto) 0.2, Neutrophils # (Auto) 10.5H, Lymphocytes # (Auto) 1.4L, Monocytes # (Auto) 0.7, Eosinophils # (Auto) 0.0, Basophils # (Auto) 0.0, Glomerular Filtration Rate > 60.0, Large Unclassified Cells # 0.1, Large Unclassified Cells % 1.0, Magnesium Level 2.1 CBC/BMP Laboratory Tests 08/23/16 06:54 Calcium Level 8.6 L, Aspartate Amino Transf (AST/SGOT) 13 L, Alanine Aminotransferase (ALT/SGPT) 16, Alkaline Phosphatase 70, Total Bilirubin 0.3, Total Protein 5.8 L, Albumin 2.5 L, Red Blood Count 4.00, Mean Corpuscular Volume 90.4, Mean Corpuscular Hemoglobin 30.2, Mean Corpuscular Hemoglobin Concent 33.4, Red Cell Distribution Width 13.7, Neutrophils (%) (Auto) 82.7 H, Lymphocytes (%) (Auto) 10.0 L, Monocytes (%) (Auto) 5.8 H, Eosinophils (%) (Auto ) 0.4, Basophils (%) (Auto) 0.2, Neutrophils # (Auto) 10.5 H, Lymphocytes # ( Auto) 1.4 L, Monocytes # (Auto) 0.7, Eosinophils # (Auto) 0.0, Basophils # (Auto ) 0.0 Microbiology Microbiology 08/19/16 Blood Culture - Preliminary, Resulted No Growth after 72 hours. All specime... 08/19/16 Blood Culture - Preliminary, Resulted No Growth after 72 hours. All specime... 08/19/16 Influenza Virus Type A Antigen - Final, Complete 08/19/16 Influenza Virus Type B Antigen - Final, Complete Discharge Medications Scheduled (Slow Fe) 142 Mg Tab 142 MG PO DAILY (Reported) Amoxicillin/Clavulanate Potas (Amoxicillin/Clavulanate P 875-125 mg) 1 Tab Tab 875 MG PO BID Budesonide/Formoterol (Symbicort 160-4.5 Mcg/Act) 60 Puff/Inhaler Aers 2 PUFF INH BID (Reported) Pantoprazole Sodium (Pantoprazole Sodium) 40 Mg Tab 40 MG PO DAILY (Reported) Paroxetine Hydrochloride (Paroxetine) 20 Mg Tab 20 MG PO DAILY (Reported) Prednisone (Prednisone) 10 Mg Tab 10 MG PO DAILY (Reported) Prednisone (Prednisone) 10 Mg Tab 10 MG PO ASDIRECTED Scheduled PRN Acetaminophen (Tylenol) 325 Mg Tab 325 MG PO Q4H PRN PRN PAIN (Reported) Albuterol/Ipratropium (Ipratropium [place]/Albut 0.5-2.5 (3) mg/3Ml) 1 Dacia Dacia 1 DACIA INH Q4H PRN PRN SHORTNESS OF BREATH (Reported) Allergies Coded Allergies: No Known Allergies (Unverified , 08/19/16) GME ATTESTATION GME ATTESTATION My preceptor for this patient encounter was Dr. Navjot Claros, and was physically present in the building during the encounter and was fully available. As needed, all aspects of the patient interview, examination, medical decision making process, and medical care plan development were reviewed and approved by the preceptor. Preceptor is aware and concurs with the plan as stated in the body of this note and will attest to such by his/her cosignature. NAVJOT LOPEZ OGWV-1 Aug 23, 2016 11:33 NAVJOT LOPEZWV-1 Aug 23, 2016 11:33 No Known Allergies (Unverified , 08/19/16) NAVJOT LOPEZWV-1 Aug 23, 2016 11:33
== END 2016-08-23 12:00 | disposition home or self-care (01) | DRG 190 ==
LOC: M ED 19:24 → M ED INP 21:00 → M MS5PR 23:15
PROVIDERS: ADMIT Internal Medicine; ATTEND Internal Medicine
DX: J44.1 Chronic obstructive pulmonary disease with (acute) exacerbation (principal); J18.9 Pneumonia, unspecified organism; E46 Unspecified protein-calorie malnutrition; F32.9 Major depressive disorder, single episode, unspecified; K21.9 Gastro-esophageal reflux disease without esophagitis; Z99.81 Dependence on supplemental oxygen; Z87.891 Personal history of nicotine dependence; Z79.52 Long term (current) use of systemic steroids; Z79.899 Other long term (current) drug therapy; D72.829 Elevated white blood cell count, unspecified; Y95 Nosocomial condition